=== PATIENT | female | born 1940 | race Caucasian/White ===

== ENCOUNTER 2020-01-04 09:14 | Emergency (ER) | payer MEDICARE, OTHER ==
[~2020-01-04] VITALS: Ht 165.1 cm; Wt 56.7 kg
--- NOTE | 2020-01-04 09:41 | NUR ---
FIRST CONTACT WITH PT. PT HAD DICKSON CHOPS LAST NIGHT AND FEELS PIECE IS STILL LODGED IN THROAT, VOMITING WITH ANY PO INTAKE SINCE LAST NIGHT. PT STATES SHE IS UNABLE TO SWALLOW SAL[place]A WITHOUT VOMITING. HX SAME WITH NO NEED FOR ENDOSCOPY IN PAST. PT'S AOX4. RESPS EVEN AND UNALBORED. PT DENIES SOB/COUGH. BP/SPO2 MONITORS IN PLACE. CALL LIGHT WITHIN REACH.
--- NOTE | 2020-01-04 09:59 | NUR ---
[facility] [phone]. PLEASE CALL WHEN PT READY FOR DC.
--- NOTE | 2020-01-04 10:58 | NUR ---
pt resting in [facility]. resps even and unlabored. pt's aox4.
[2020-01-04] MEDS ORDERED: ONDANSETRON 2MG/ML, 2ML IVPush ONE ×2 (11:00→13:30)
[2020-01-04] MEDS ORDERED: SODIUM CHLORIDE FLUSH 10ML SYR IVF ONE (11:00)
[2020-01-04] MEDS ORDERED: ONDANSETRON 2MG/ML, 2ML ONE ×2 (11:02→13:31)
--- NOTE | 2020-01-04 11:40 | NUR ---
TASK RN NOTE: PIV ESTABLISHED, PT MEDICATED PER EMAR, PT TOLERATED WELL.
--- NOTE | 2020-01-04 12:00 | NUR ---
BOOKMOBILE CLERK: PT TRANSFERRED TO TR02 FOR SCHEDULED PROCEDURE
--- NOTE | 2020-01-04 12:22 | NUR ---
pt resting in [facility]. pt's aox4. resps even and unlabored. all monitors in place. call light within reach.
--- NOTE | 2020-01-04 13:29 | NUR ---
pt c/o nausea at this time. pt requesting nausea med. edmd notified.
--- NOTE | 2020-01-04 13:44 | NUR ---
pt medicated per emar for nausea. warm blanket given. pt's aox4. resps even and unlabored.
--- NOTE | 2020-01-04 14:38 | NUR ---
pt sleeping in [facility]. resps even and unlabored. all monitors in place. call light within reach.
--- NOTE | 2020-01-04 15:19 | NUR ---
gi at bedside at this time.
[2020-01-04] MEDS ORDERED: PROPOFOL 10 MG/ML, 20ML ONE (15:23)
[2020-01-04] MEDS ORDERED: PROPOFOL 10 MG/ML, 20ML IV ONE (15:30)
--- NOTE | 2020-01-04 15:35 | NUR ---
PT AND EDMD/GI DR SIGNED ON CONSENT FORM AT THIS TIME.
--- NOTE | 2020-01-04 15:48 | NUR ---
PROCEDURE DONE BY TORITO IQBAL PT STILL SEDATED. RESPS EVEN AND UNLABORED. ALL MONITORS IN PLACE.
--- NOTE | 2020-01-04 16:06 | NUR ---
PT BACK TO HER BASELINE AT THIS TIME. PT'S AOX4. RESPS EVEN AND UNLABORED. ALL MONITORS IN PLACE. PT'S DAUGHTER AT BEDSIDE AT THIS TIME.
[2020-01-04 16:14] LABS: BASOPHILS # (AUTO) 0.01 x10^3/uL (0-0.1); BASOPHILS % (AUTO) 0 % (0-1); EOSINOPHILS % (AUTO) 0 % (1-7); LYMPHOCYTES # (AUTO) 0.98 x10^3/uL (1-3.4); LYMPHOCYTES % (AUTO) 7 % (22-44); MD NO; MEAN CORPUSCULAR HEMOGLOBIN 33.4 pg (27.0-34.8); MEAN CORPUSCULAR HGB CONC 33.5 g/dL (32.4-35.8); MEAN CORPUSCULAR VOLUME 99.8 fL (80-100); MEAN PLATELET VOLUME 10.1 fL (7.4-10.4); MONOCYTES # (AUTO) 0.71 x10^3/uL (0.2-0.8); MONOCYTES % (AUTO) 5 % (2-9); NEUTROPHILS # (AUTO) 13.24 x10^3/uL (1.8-6.8); NEUTROPHILS % (AUTO) 89 % (42-75); PLATELET COUNT 203 x10^3/uL (130-400); RED BLOOD COUNT 4.63 x10^6/uL (3.82-5.3); RED CELL DISTRIBUTION WIDTH 14.2 % (9.6-15.2)
[2020-01-04 16:25] LABS: ALANINE AMINOTRANSFERASE 17 U/L (12-78); ALBUMIN 3.6 g/dL (3.4-5.0); ANION GAP 10 mmol/L (5-15); CALCIUM 9.2 mg/dL (8.5-10.1); CHLORIDE 108 mmol/L (98-107); CREATININE 0.89 mg/dL (0.55-1.02)
[2020-01-04 16:28] LABS: ALKALINE PHOSPHATASE 60 U/L (45-117); BILIRUBIN,TOTAL 1.1 mg/dL (0.2-1.0); TOTAL PROTEIN 7.6 g/dL (6.4-8.2)
[2020-01-04] MEDS ORDERED: OMNIPAQUE 350 MG/ML, 100ML BOTTLE ONE (17:00)
[2020-01-04 17:01] VITALS: BP 141/73
--- NOTE | 2020-01-04 17:02 | NUR ---
PT RESTING IN [place]. PT'S AOX4. RESPS EVEN AND UNLABORED. ALL MONITORS IN PLACE. CALL LIGHT WITHIN REACH. PT'S DAUGHTER AT BEDSIDE AT THIS TIME.
--- NOTE | 2020-01-04 17:41 | NUR ---
Patient given discharge instructions and they have confirmed that they understand the instructions.
== END 2020-01-04 17:42 | disposition home or self-care (01) ==
LOC: ED 13:08
DX: T18.128A Food in esophagus causing other injury, initial encounter (principal); K22.10 Ulcer of esophagus without bleeding; X58.XXXA Exposure to other specified factors, initial encounter; Y93.89 Activity, other specified; Y92.89 Other specified places as the place of occurrence of the external cause; Y99.8 Other external cause status
CPT/HCPCS: 36415; 43247; 71260; 80053; 85025; 88305; 93005; 96374; 96376; 99285; J2405; Q9967